=== PATIENT | female | born 2000 | race Caucasian/White ===

== ENCOUNTER 2020-12-29 19:48 | Emergency (ER) | payer BC ==
[2020-12-29 20:52] LABS: Urine Blood Negative (Negative); Urine Glucose Negative (Negative); Urine Protein Negative (Negative); Urine Specific Gravity 1.025 (1.005-1.030)
[2020-12-29 21:11] LABS: Absolute Lymphocytes (CBC) 1.4 K/uL (0.7-4.9); Basophils % 0.3 % (0-1.3); Hematocrit 42.9 % (36.0-45.0); Lymphocytes % 19.8 % (15.3-44.8); MPV 8.1 fL (7.6-11.3); RBC Red Blood Cell Count 5.43 M/uL (3.86-4.86)
[2020-12-29 21:12] LABS: Urine Specific Gravity/Preg 1.025 (1.005-1.030)
[2020-12-29 21:31] LABS: Protime INR 1.02
[2020-12-29] MEDS ORDERED: NA CHLORIDE 0.9% 500 ML ONE (21:34)
[2020-12-29] MEDS ORDERED: NA CHLORIDE 0.9% 1,000 ML ONE (21:34)
[2020-12-29 21:40] LABS: ALT/SGPT 15 U/L (12-78); AST/SGOT 15 U/L (15-37); Albumin 3.8 g/dL (3.4-5.0); Alkaline Phosphatase 77 U/L (45-117); Amylase 47 U/L (25-115); BUN Blood Urea Nitrogen 9 mg/dL (7-18); Bicarbonate 23 mmol/L (21-32); Bilirubin Direct 0.1 mg/dL (0-0.2); Bilirubin Total 0.5 mg/dL (0.2-1.0); Blood Morphology Comment NOT SEEN (NOT SEEN); Creatine Phosphokinase 44 U/L (26-192); Glucose Level 94 mg/dL (74-106); Lipase 144 U/L (73-393); Platelet Estimate ADEQ; Potassium 3.2 mmol/L (3.5-5.1); Protein, Total 7.8 g/dL (6.4-8.2); Sodium Level 138 mmol/L (136-145); Troponin (Emerg Dept Use Only) < 0.02 ng/mL (0.0-0.045)
[2020-12-29 21:55] LABS: CKMB Creatine Kinase MB < 1.0 ng/mL (1.0-3.6)
[2020-12-29] MEDS ORDERED: ACETAMINOPHEN 325 MG TABLET ONE (21:59)
[2020-12-29 22:07] LABS: Magnesium 1.9 mg/dL (1.8-2.4); Phosphorus 2.1 mg/dL (2.5-4.9)
[2020-12-29] MEDS ORDERED: POTASSIUM 25 MEQ EFFERV TAB ONE (23:58)
[2020-12-30 01:31] LABS: Absolute Lymphocytes (CBC) 1.3 K/uL (0.7-4.9); Basophils % 0.6 % (0-1.3); Hematocrit 37.1 % (36.0-45.0); Lymphocytes % 26.8 % (15.3-44.8); MPV 8.4 fL (7.6-11.3); RBC Red Blood Cell Count 4.67 M/uL (3.86-4.86)
[2020-12-30 02:33] LABS: Blood Morphology Comment NOT SEEN (NOT SEEN); Platelet Estimate ADEQ
--- NOTE | 2020-12-30 02:49 | ER ---
Nurse's Notes [facility] Name: Carol Melendez Age: 20 yrs Sex: Female : 2000 Arrival Date: 12/29/2020 Time: 19:52 Bed 4 Private MD: Diagnosis: Bandemia;Hypokalemia;Dehydration;Viral syndrome;Dyspnea, unspecified Presentation: 12/29 20:34 Chief complaint: Patient states: she was seen at Urgent Care an hour ago and told to go bb to ED for possible breast abscess pt had low BP and elevated heart rate was started on antibiotics 2 days but she is feeling worse. Coronavirus screen: At this time, the client does not indicate any symptoms associated with coronavirus-19. Ebola Screen: No symptoms or risks identified at this time. Initial Sepsis Screen: Does the patient meet any 2 criteria? Temp <36.0*C (96.8*F)) or > 38.3*C (100.9*F). HR > 90 bpm. Yes Does the patient have a suspected source of infection? Yes: Other: mastitis. Risk Assessment: Do you want to hurt yourself or someone else? Patient reports no desire to harm self or others. Onset of symptoms was December 27, 2020. 20:34 Method Of Arrival: Ambulatory bb 20:34 Acuity: LAURA 2 bb Triage Assessment: 20:37 General: Appears in no apparent distress. uncomfortable, slender, Behavior is calm, bb cooperative. Pain: Complains of pain in headache. Neuro: Level of Consciousness is awake, alert, obeys commands, Oriented to person, place, time, situation. Cardiovascular: Capillary refill < 3 seconds Patient's skin is warm and dry. Respiratory: Respiratory effort is even, unlabored, Respiratory pattern is regular. GI: No signs and/or symptoms were reported involving the gastrointestinal system. Derm: Skin is pink, warm \\T\\ dry. Musculoskeletal: Circulation, motion, and sensation intact. 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 - Social history:: Smoking status: Patient denies any tobacco usage or history of. Screenin:54 Abuse screen: Denies threats or abuse. Denies injuries from another. Nutritional kc4 screening: No deficits noted. On no prescribed diet Difficulty chewing/swallowing? No. Tuberculosis screening: No symptoms or risk factors identified. Never had TB. Possible symptoms: None Risk factors: None. Fall Risk None identified. No fall in past 12 months (0 pts). No secondary diagnosis (0 pts). IV access (20 points). Ambulatory Aid- None/Bed Rest/Nurse Assist (0 pts). Gait- Normal/Bed Rest/Wheelchair (0 pts) Mental Status- Oriented to own ability (0 pts). Total Vasquez Fall Scale indicates No Risk (0-24 pts). Assessment: 21:33 General: Appears distressed, uncomfortable, well groomed, Behavior is cooperative, kc4 appropriate for age, anxious, restless, Reports chills for feeling ill for fatigue for 1-2 days, Denies fever. Neuro: No deficits noted. Cardiovascular: No deficits noted. Respiratory: No deficits noted. GI: No deficits noted. 23:39 Pain: Complains of pain in right breast Pain currently is 5 out of 10 on a pain scale. kc4 at worst was 9 out of 10 on a pain scale. level that patient reports is acceptable is 0 out of 10 on a pain scale. Quality of pain is described as aching, sharp, shooting, tender, Pain began 2-3 days ago. Is intermittent, Alleviated by heat application, relaxation, Aggravated by exercise, increased activity. : No deficits noted. No signs and/or symptoms were reported regarding the genitourinary system. EENT: No deficits noted. No signs and/or symptoms were reported regarding the EENT system. Derm: No deficits noted. No signs and/or symptoms reported regarding the dermatologic system. Musculoskeletal: No deficits noted. No signs and/or symptoms reported regarding the musculoskeletal system. Vital Signs: 20:34 BP 109 / 78; Pulse 110; Resp 18 S; Temp 100.2(O); Pulse Ox 98% on R/A; Weight 49.9 kg bb (R); Height 5 ft. 3 in. (160.02 cm) (R); Pain 0/10; 21:53 BP 119 / 74; Pulse 106; Resp 20; Temp 99.0(O); Pulse Ox 100% on R/A; Pain 4/10; kc4 23:38 BP 108 / 76; Pulse 102; Resp 20; Temp 98.9(O); Pulse Ox 100% on R/A; Pain 3/10; kc4 12/30 00:47 BP 110 / 80 Supine; Pulse 80; Resp 20; Pulse Ox 99% ; Pain 0/10; kc4 01:00 BP 115 / 76 Sitting; Pulse 84; Resp 20; Temp 98.9(O); Pulse Ox 99% on R/A; Pain 0/10; kc4 01:00 BP 119 / 75 Standing; Pulse 88; Resp 20; Pulse Ox 100% on R/A; Pain 0/10; kc4 03:01 BP 112 / 78; Pulse 84; Resp 16; Pulse Ox 99% on R/A; Pain 0/10; kc4 12/29 20:34 Body Mass Index 19.49 (49.90 kg, 160.02 cm) bb ED Course: 12/29 19:52 Patient arrived in ED. wm 20:37 Triage completed. bb 20:37 Arm band placed on Patient placed in an exam room, on a stretcher, on pulse oximetry. bb Family accompanied patient. 20:41 Marquita Lutz is Primary Nurse. df1 21:00 Inserted saline lock: 20 gauge in left antecubital area, using aseptic technique. kc4 21:03 Navdeep Fields MD is Attending Physician. [facility] 21:35 COVID-19 (Coronavirus) Document "Date of Onset" if Symptomatic Sent. kc4 21:49 Phosphorus Sent. df1 21:49 Magnesium Sent. df1 21:49 Influenza Screen (A Sent. df1 21:50 Influenza Screen (a \\T\\ B) Sent. df1 21:50 Chest Single View XRAY Sent. df1 21:52 Urine --Ancillary (enter results) Sent. df1 21:55 SARS-COV-2 RT PCR Sent. kc4 21:56 Blood Culture Adult (2) Sent. kc4 21:56 Procalcitonin Sent. kc4 21:56 Urine Microscopic Only Sent. kc4 22:10 Chest Single View XRAY In Process Unspecified. EDMS 23:01 BREAST/AXILLA, LIMITED In Process Unspecified. EDMS 23:13 CT Chest For PE Angio In Process Unspecified. EDMS 23:44 Blood Culture Adult (2) Sent. 4 12/30 01:15 CBC with Diff Sent. kc4 01:16 orthostatics. kc4 03:00 IV discontinued, intact, bleeding controlled, No redness/swelling at site. Pressure kc4 dressing applied. Administered Medications: 12/29 21:34 Drug: Tylenol 650 mg Route: PO; kc4 21:56 Follow up: Response: No adverse reaction; Temperature is decreased; Pain is decreased kc4 23:44 Follow up: Response: No adverse reaction kc4 21:51 Drug: NS 0.9% (30 ml/kg) 30 ml/kg Route: IV; Rate: bolus; Site: left antecubital; df1 21:52 Drug: NS 0.9% (30 ml/kg) 30 ml/kg Route: IV; Rate: bolus; Site: left antecubital; df1 23:44 Follow up: Response: No adverse reaction [facility] 12/30 03:01 Follow up: IV Status: Completed infusion 4 12/29 23:37 CANCELLED (no med avalible): Potassium \\T\\ Sodium Phosphates Packet 280 mg-160 mg-250 mg kc4 1 packets PO once; mix packet with 75ml water or juice, stir well and administer promptly 23:37 Drug: Potassium Effervescent Tablet 50 mEq Route: PO; kc4 23:43 Follow up: Response: No adverse reaction [facility] 12/30 02:59 Drug: Rocephin (cefTRIAXone) 1 grams Route: IV; Rate: per protocol; Site: left kc4 antecubital; 02:59 Follow up: Response: No adverse reaction; IV Status: Completed infusion kc Outcome: 02:59 AMA AMA form signed kc 02:59 Condition: stable 02:59 Discharge instructions given to patient, significant other, Instructed on discharge instructions, follow up and referral plans. Demonstrated understanding of instructions, follow-up care. 03:02 Patient left the ED. kc4 Signatures: Dispatcher [employer] EDMS Dana Lin RN RN bb Holmes, Maurice, MD MD [facility] Andreina Lance Kourtney 4 Marquita Lutz df1 Corrections: (The following items were deleted from the chart) 12/29 21:28 21:27 In radiology for Chest Single View+RAD.RAD.BRZ. EDMS EDMS 21:53 21:35 CORONAVIRUS drawn and sent. kc4 EDMS 12/30 01:01 00:47 BP 110 / 80; Pulse 80bpm; Resp 20bpm; Pulse Ox 99%; Pain 0/10; kc4 kc4
--- NOTE | 2020-12-30 02:49 | EDPHYS ---
Physician Documentation [facility] Name: Carol Melendez Age: 20 yrs Sex: Female : 2000 Arrival Date: 12/29/2020 Time: 19:52 Bed 4 Private MD: ED Physician Navdeep Fields HPI: 12/29 21:30 This 20 yrs old Female presents to ER via Ambulatory with complaints of Low mh7 Blood Pressure; 100/60. 21:30 The patient has shortness of breath at rest, with light activity. Onset: The mh7 symptoms/episode began/occurred 2 day(s) ago. Duration: The symptoms are intermittent, with no pattern. The patient's shortness of breath is aggravated by exertion, light activity, is alleviated by nothing. Associated signs and symptoms: Pertinent positives: fever, Right breast pain, body aches, Pertinent negatives: chest pain, non-productive cough, productive cough, diaphoresis, dizziness, fever, hemoptysis, loss of consciousness, nausea, numbness in extremities, visual changes, vomiting. Severity of symptoms: At their worst the symptoms were moderate yesterday, in the emergency department the symptoms are unchanged. Patient states that she has been taking Augmentin for the past 2 days. She was seen in urgent care and was told her blood pressure was low and to come to the ER.. 21:30 She reports that she has a [id number] baby that she is actively breast-feeding. She mh7 reports having mastitis in the past that affected both breasts.. 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 - Social history:: Smoking status: Patient denies any tobacco usage or history of. ROS: 21:30 Eyes: Negative for injury, pain, redness, and discharge, ENT: Negative for injury, mh7 pain, and discharge, Neck: Negative for injury, pain, and swelling, Cardiovascular: Negative for chest pain, palpitations, and edema, Abdomen/GI: Negative for abdominal pain, nausea, vomiting, diarrhea, and constipation, Back: Negative for injury and pain, : Negative for injury, bleeding, discharge, and swelling, MS/Extremity: Negative for injury and deformity, Skin: Negative for injury, rash, and discoloration, Neuro: Negative for headache, weakness, numbness, tingling, and seizure, Psych: Negative for depression, anxiety, suicide ideation, homicidal ideation, and hallucinations, Allergy/Immunology: Negative for hives, rash, and allergies, Endocrine: Negative for neck swelling, polydipsia, polyuria, polyphagia, and marked weight changes, Hematologic/Lymphatic: Negative for swollen nodes, abnormal bleeding, and unusual bruising. Exam: 21:30 Constitutional: This is a well developed, well nourished patient who is awake, alert, mh7 and in no acute distress. Head/Face: Normocephalic, atraumatic. Eyes: Pupils equal round and reactive to light, extra-ocular motions intact. Lids and lashes normal. Conjunctiva and sclera are non-icteric and not injected. Cornea within normal limits. Periorbital areas with no swelling, redness, or edema. ENT: Nares patent. No nasal discharge, no septal abnormalities noted. Tympanic membranes are normal and external auditory canals are clear. Oropharynx with no redness, swelling, or masses, exudates, or evidence of obstruction, uvula midline. Mucous membranes moist. Neck: Trachea midline, no thyromegaly or masses palpated, and no cervical lymphadenopathy. Supple, full range of motion without nuchal rigidity, or vertebral point tenderness. No Meningismus. Chest/axilla: Normal chest wall appearance and motion. Nontender with no deformity. No lesions are appreciated. 21:30 Abdomen/GI: Soft, non-tender, with normal bowel sounds. No distension or tympany. No guarding or rebound. No evidence of tenderness throughout. Back: No spinal tenderness. No costovertebral tenderness. Full range of motion. Skin: Warm, dry with normal turgor. Normal color with no rashes, no lesions, and no evidence of cellulitis. MS/ Extremity: Pulses equal, no cyanosis. Neurovascular intact. Full, normal range of motion. Neuro: Awake and alert, GCS 15, oriented to person, place, time, and situation. Cranial nerves II-XII grossly intact. Motor strength 5/5 in all extremities. Sensory grossly intact. Cerebellar exam normal. Normal gait. Psych: Awake, alert, with orientation to person, place and time. Behavior, mood, and affect are within normal limits. 21:30 Cardiovascular: Rate: tachycardic, Rhythm: regular, Pulses: no pulse deficits are appreciated, Heart sounds: normal, normal S1and S2, Edema: is not appreciated, JVD: is not appreciated. Vital Signs: 20:34 BP 109 / 78; Pulse 110; Resp 18 S; Temp 100.2(O); Pulse Ox 98% on R/A; Weight 49.9 kg bb (R); Height 5 ft. 3 in. (160.02 cm) (R); Pain 0/10; 21:53 BP 119 / 74; Pulse 106; Resp 20; Temp 99.0(O); Pulse Ox 100% on R/A; Pain 4/10; kc4 23:38 BP 108 / 76; Pulse 102; Resp 20; Temp 98.9(O); Pulse Ox 100% on R/A; Pain 3/10; kc4 12/30 00:47 BP 110 / 80 Supine; Pulse 80; Resp 20; Pulse Ox 99% ; Pain 0/10; kc4 01:00 BP 115 / 76 Sitting; Pulse 84; Resp 20; Temp 98.9(O); Pulse Ox 99% on R/A; Pain 0/10; kc4 01:00 BP 119 / 75 Standing; Pulse 88; Resp 20; Pulse Ox 100% on R/A; Pain 0/10; kc4 03:01 BP 112 / 78; Pulse 84; Resp 16; Pulse Ox 99% on R/A; Pain 0/10; kc4 12/29 20:34 Body Mass Index 19.49 (49.90 kg, 160.02 cm) MDM: 02:45 Differential diagnosis: Anemia Anxiety Reaction asthma, Bronchitis pneumonia, pulmonary mh7 edema, Pulmonary Embolism reactive airway disease, Sepsis. Data reviewed: vital signs, nurses notes, lab test result(s), CBC, electrolytes, Flu: negative urinalysis, UPT: negative Covid negative, EKG, radiologic studies, CT scan, plain films. Data interpreted: Pulse oximetry: on room air is 100 %. Interpretation: normal. Counseling: I had a detailed discussion with the patient and/or guardian regarding: the historical points, exam findings, and any diagnostic results supporting the discharge/admit diagnosis, lab results, radiology results. Response to treatment: the patient's symptoms have resolved after treatment, the patient's blood pressure is in an acceptable range, mental status has returned to baseline, the patient no longer shows bradycardia, the patient is not short of breath, the patient is not tachycardic, the patient's pain is gone, the patient's temperature has normalized. Refusal of service: The patient/guardian displays adequate decision making capability and despite a detailed discussion of alternatives, benefits, risks, and consequences refuses: Admission to the hospital for further work-up and treatment. 02:49 Patient medically screened. mh7 12/29 20:52 Order name: Urine Dipstick-Ancillary; Complete Time: 21:29 EDMS 12/29 20:53 Order name: Urine --Ancillary (enter results) tt3 12/29 20:53 Order name: Urine --Ancillary; Complete Time: 21:29 EDMS 12/29 20:59 Order name: Amylase, Serum; Complete Time: 22:28 df1 12/29 20:59 Order name: Basic Metabolic Panel; Complete Time: 22:28 df1 12/29 20:59 Order name: Blood Culture Adult (2) df1 12/29 20:59 Order name: CBC with Diff; Complete Time: 21:43 df1 12/29 20:59 Order name: CPK; Complete Time: 22:28 df1 12/29 20:59 Order name: Ckmb; Complete Time: 22:28 df1 12/29 20:59 Order name: LFT's; Complete Time: 22:28 df1 12/29 20:59 Order name: Lactate; Complete Time: 21:36 df1 12/29 20:59 Order name: Lipase; Complete Time: 22:28 df1 12/29 20:59 Order name: Procalcitonin; Complete Time: 22:28 df1 12/29 20:59 Order name: Protime (+inr); Complete Time: 21:36 df1 12/29 20:59 Order name: Ptt, Activated; Complete Time: 21:36 df1 12/29 20:59 Order name: Troponin (emerg Dept Use Only); Complete Time: 22:28 df1 12/29 21:20 Order name: Manual Differential; Complete Time: 21:43 EDNE 12/29 21:25 Order name: Glucose, Ancillary Testing; Complete Time: 21:29 [facility] 12/29 21:33 Order name: COVID-19 (Coronavirus) Document "Date of Onset" if Symptomatic [facility] 12/29 21:35 Order name: Chest Single View XRAY [facility] 12/29 21:36 Order name: Influenza Screen (a \\T\\ B) [facility] 12/29 21:36 Order name: Influenza Screen (A ; Complete Time: 22:35 EDNE 12/29 21:43 Order name: Magnesium; Complete Time: 22:28 [facility] 12/29 21:43 Order name: Phosphorus; Complete Time: 22:28 [facility] 12/29 21:53 Order name: SARS-COV-2 RT PCR; Complete Time: 22:51 EDNE 12/30 00:57 Order name: CBC with Diff; Complete Time: 02:38 [facility] 12/30 01:56 Order name: Manual Differential; Complete Time: 02:38 [facility] 12/29 20:53 Order name: Urine Test (obtain specimen); Complete Time: 20:53 [facility] 12/29 20:59 Order name: Accucheck; Complete Time: 21:51 [facility] 12/29 20:59 Order name: Cardiac monitoring; Complete Time: 21:51 [facility] 12/29 20:59 Order name: EKG - Nurse/Tech; Complete Time: 21:51 [facility] 12/29 20:59 Order name: IV Saline Lock - Large Bore; Complete Time: 21:51 [facility] 12/29 20:59 Order name: Labs collected and sent; Complete Time: 21:51 [facility] 12/29 20:59 Order name: O2 Per Protocol; Complete Time: 21:51 [facility] 12/29 20:59 Order name: O2 Sat Monitoring; Complete Time: 21:51 [facility] 12/29 20:59 Order name: Urine Dipstick-Ancillary (obtain specimen); Complete Time: 21:51 [facility] 12/29 22:40 Order name: BREAST/AXILLA, LIMITED [facility] 12/29 22:52 Order name: CT Chest For PE Angio [facility] Administered Medications: 12/29 21:34 Drug: Tylenol 650 mg Route: PO; kc4 21:56 Follow up: Response: No adverse reaction; Temperature is decreased; Pain is decreased kc4 23:44 Follow up: Response: No adverse reaction kc4 21:51 Drug: NS 0.9% (30 ml/kg) 30 ml/kg Route: IV; Rate: bolus; Site: left antecubital; df1 21:52 Drug: NS 0.9% (30 ml/kg) 30 ml/kg Route: IV; Rate: bolus; Site: left antecubital; df1 23:44 Follow up: Response: No adverse reaction [facility] 12/30 03:01 Follow up: IV Status: Completed infusion [facility] 12/29 23:37 CANCELLED (no med avalible): Potassium \\T\\ Sodium Phosphates Packet 280 mg-160 mg-250 mg kc4 1 packets PO once; mix packet with 75ml water or juice, stir well and administer promptly 23:37 Drug: Potassium Effervescent Tablet 50 mEq Route: PO; kc4 23:43 Follow up: Response: No adverse reaction [facility] 12/30 02:59 Drug: Rocephin (cefTRIAXone) 1 grams Route: IV; Rate: per protocol; Site: left 4 antecubital; 02:59 Follow up: Response: No adverse reaction; IV Status: Completed infusion [facility] Disposition Summary: 12/30/20 02:49 Left Against Medical Advice Location: Home [facility] Problem: new [facility] Symptoms: have improved [facility] Condition: Stable [facility] Diagnosis - Bandemia mh7 - Hypokalemia mh7 - Dehydration mh7 - Viral syndrome mh7 - Dyspnea, unspecified 7 Followup: [facility] - With: Private Physician - When: 1 - 2 days - Reason: Worsening of condition, Recheck today's complaints, Continuance of care, Re-evaluation by your physician Discharge Instructions: - Discharge Summary Sheet 7 - Shortness of Breath, Adult, Midm-tm-Pgqm mh7 - Dehydration, Adult, Hgsv-ek-Xyvy mh7 - Hypokalemia mh7 - Leukocytosis 7 Signatures: Dispatcher [employer] EDDana Juares RN RN Franko Jackman, TRIM MACHINE ADJUSTER-C TRIM MACHINE ADJUSTER-Cla1 Navdeep Fields MD MD 7 Estrada Montoya tt3 Demetra Rivera kc4 Marquita Lutz df1 Corrections: (The following items were deleted from the chart) 12/29 21:28 21:00 Chest Single View+RAD.RAD.BRZ ordered. EDMS EDMS 21:53 21:33 CORONAVIRUS ordered. EDMS EDMS 22:40 22:36 BREAST/AXILLA, COMPLETE ordered. EDMS EDMS 23:37 22:52 Potassium \\T\\ Sodium Phosphates Packet 280 mg-160 mg-250 mg 1 packets PO once; mix kc4 packet with 75ml water or juice, stir well and administer promptly ordered. [facility] 23:37 23:35 Potassium \\T\\ Sodium Phosphates Packet 280 mg-160 mg-250 mg 1 packets PO once; mix kc4 packet with 75ml water or juice, stir well and administer promptly ordered. kc4
[2020-12-30] MEDS ORDERED: CEFTRIAXONE 1000 MG/VIAL ONE (03:13)
[2020-12-30 03:51] VITALS: TEMP 98.9
[2020-12-30 03:56] VITALS: BP 112/78; O2SAT 99
--- NOTE | 2020-12-30 08:10 | RAD REPORT ---
EXAM DESCRIPTION: RAD - Chest Single View - 12/29/2020 10:10 pm CLINICAL HISTORY: FEVER COMPARISON: No comparisons FINDINGS: Lines: None. Lungs: No evidence of edema or pneumonia. Pleural: No significant pleural effusions or pneumothorax. Cardiac: The heart size is within normal limits. Bones: No acute fractures. Other: IMPRESSION: No acute cardiopulmonary disease.
--- NOTE | 2020-12-30 08:11 | RAD REPORT ---
EXAM DESCRIPTION: US - BREAST/AXILLA, LIMITED - 12/29/2020 11:02 pm CLINICAL HISTORY: Pain, possible abscess COMPARISON: BREAST/AXILLA, LIMITED dated 05/07/2017 FINDINGS: Full right breast sonography was performed including all 4 quadrants and the retroareolar region. No focal abnormality identified. IMPRESSION: No mass or fluid collection identified.
--- NOTE | 2020-12-30 10:52 | RAD REPORT ---
EXAM DESCRIPTION: CT - Chest For Pe Angio - 12/30/2020 6:32 am CLINICAL HISTORY: 20 years Female SOB TECHNIQUE: Contiguous axial images obtained through the chest were obtained from the thoracic inlet to the level of the upper abdomen during the pulmonary arterial phase of intravenous contrast adminis tration. Multiplanar reformatted and MIP images provided. This CT exam was performed according to our departmental dose-optimization program, which includes on e or more of the following dose reduction techniques: automated exposure control, adjustment of the m A and/or kV according to patient size, and/or use of iterative reconstruction technique. COMPARISON: No prior exams provided for comparison. FINDINGS: There is no pulmonary embolus. The thoracic aorta is normal without aneurysm or dissection. The heart is normal in size without jennyfer cardial effusion. The lungs are clear without consolidation, effusion, or pneumothorax. No lymphadenopathy in the chest . There are no visualized acute osseous or upper abdominal abnormalities. IMPRESSION: No pulmonary embolus. No acute cardiopulmonary findings. Electronically signed by: Sarah Montgomery MD 12/29/2020 11:46 PM CDT Due to temporary technical issues with the PACS/Fluency reporting system, reports are being signed by the in house radiologists without review as a courtesy to insure prompt reporting. The interpreting radiologist is fully responsible for the content of the report.
== END 2020-12-30 03:02 | disposition left against medical advice (07) ==
LOC: ER 19:48
DX: E86.0 Dehydration (principal); E87.6 Hypokalemia; D72.825 Bandemia; B34.9 Viral infection, unspecified; Z20.822 Contact with and (suspected) exposure to COVID-19
CPT/HCPCS: 96365; 93005; 87040; 85025 ×2; 80048; 36415; 82150; 83735; 82550; 87205; 81025; 84100; 85610; 82947; 80076; 83605; 85730; 81003; 84484; 82553; 83690; 84145; 87804 ×2; 71275; 71045; 76642; 96375; 99284; 96366; U0003; Q9967; J7040; J7030